=== PATIENT | male | born 1970 | race Caucasian/White ===

== ENCOUNTER 2019-12-18 09:33 | Outpatient (REF) | payer OTHER, SELFPAY | END 2019-12-18 09:34 | disposition home or self-care (01) | LOC: HO.LAB 09:33 | PROVIDERS: Visit Provider Internal Medicine | DX: Z20.828 Contact with and (suspected) exposure to other viral communicable diseases (principal) | CPT/HCPCS: C9803; U0003 ==

== ENCOUNTER 2020-02-21 12:58 | Outpatient (REF) | payer OTHER, SELFPAY | END 2020-02-21 12:59 | disposition home or self-care (01) | LOC: HO.LAB 12:58 | PROVIDERS: Visit Provider Internal Medicine | DX: Z20.822 Contact with and (suspected) exposure to COVID-19 (principal) | CPT/HCPCS: 36415; C9803; U0003 ==

== ENCOUNTER 2020-06-15 13:56 | Emergency (ER) | payer OTHER, SELFPAY ==
[2020-06-15 14:05] VITALS: BP 143/85; PULSE 85; RESP 18; TEMP 37; O2SAT 97; BMI 29.0
--- NOTE | 2020-06-15 15:12 | ED.WOUNDLAC ---
HPI - Wound/Laceration General Chief Complaint: Wound/Laceration Stated Complaint: L HAND LACERATION Time Seen by Provider: 06/15/20 15:03 Source: patient Mode of arrival: ambulatory Limitations: no limitations History of Present Illness HPI narrative: Patient presents to the ED for dorsal aspect of hand laceration. Patient states he had a padded box sewer in his pants and he forgot about it and he put his left hand into his pocket and the padded box sewer cut the dorsal aspect of his hand. States not much bleeding. Patient has complete range of motion of wrist and hand. Related Data Allergies Allergy/AdvReac Type Severity Reaction Status Date / Time No Known Allergies Allergy Unverified 10/31/19 19:29 [No Known Allergies*] Review of Systems Review of Systems: Yes all other systems are reviewed and are negative Constitutional: Constitutional: Reports as per HPI and Reports no additional constitutional complaints Eyes: Eyes: Reports as per HPI and Reports no additional eye complaints ENT: Reports system reviewed and no additional complaints, except as documented and Reports as per HPI Cardiovascular: Cardiovascular: Reports as per HPI and Reports no additional cardiovascular complaints Respiratory: Respiratory: Reports as per HPI and Reports no additional respiratory complaints Gastrointestinal: Gastrointestinal: Reports as per HPI and Reports no additional gastrointestinal complaints Genitourinary: Genitourinary: Reports no additional male genitourinary complaints and Reports as per HPI Musculoskeletal: Musculoskeletal: Reports no additional musculoskeletal complaints and Reports as per HPI Comments: Left hand laceration on dorsal aspect Neurologic: Reports system reviewed and no additional complaints, except as documented and Reports as per HPI Psychiatric: Psychiatric: Reports no additional psychiatric complaints and Reports as per HPI Endocrine: Endocrine: Reports no additional endocrine complaints and Reports as per HPI [facility] Social History Social History Advance Directives: Yes Advance Directives Information Provided: Yes Advance Directives on File: No Physical Exam Vital Signs: Vital Signs: Last Vital Signs Temp 98.6 F 06/15/20 14:05 Pulse 85 06/15/20 14:05 Resp 18 06/15/20 14:05 BP 143/85 H 06/15/20 14:05 Pulse Ox 97 06/15/20 14:05 Body Mass Index 29.0 Const: General: cooperative, healthy appearing, comfortable, no acute distress, well developed, alert and awake Orientation/consciousness: patient oriented x3 HENMT: Head: Yes normal to inspection, Yes No palpable skull fracture present, Yes normocephalic and No atraumatic Eyes: General: appearance normal, both eyes and all related structures Neck: Neck: Yes normal visual inspection, Yes full ROM, Yes no lymphadenopathy, Yes no meningeal signs, Yes trachea midline, Yes supple and No tender Chest: Chest palpation & inspection: normal inspection of the chest and normal palpation of entire chest wall Breast/axilla inspection: normal inspection of the breasts Resp: Effort & Inspection: normal respiratory effort and able to speak in complete sentences Auscultation: clear to auscultation bilaterally Cardio: Jugular venous distension: no JVD Heart sounds: S1 normal heart sound present and S2 normal heart sound present GI: Inspection: Yes normal to inspection and No abdominal wall ecchymosis Palpation (GI): Soft to palpation, not firm, nontender, no guarding and not rigid : General: Yes no CVA tenderness Back/Spine/Pelvis: Back: no CVA tenderness, No CVA tenderness and No back tenderness Skin: General skin exam: no rashes or lesions noted and elasticity normal Neuro: General: patient oriented x3, no meningeal signs and CN's II-XI intact bilaterally Cranial nerves: Yes CN's II-XII intact bilaterally Extrem: Other: Left upper extremity: Laceration on dorsal aspect of hand. Patient has complete range of motion of hand and wrist. Mild bleeding. Negative for any tendon exposure of possibility of tendon injury. Capillary refill is intact. Radial pulse intact. Neuro exam is intact. Vascular exam intact Psych: Appearance: grossly normal, well kempt and not disheveled Course Course Course Narrative: No need for hand x-ray. Very superficial laceration. Will repair laceration. Reevaluation(s) Reevaluation #1: Laceration on dorsal aspect of left hand clean with sterile saline and Betadine. Lidocaine 2% 5 mL was placed into wound for anesthesia. Size 4 nylon sutures were used for repair. Four sutures were placed. Tetanus ordered. Discharge Plan Discharge Clinical Impression: Laceration Patient Disposition: Home, Self-Care Instructions: Laceration (ED) Additional Instructions: Return to the ED immediately for redness, pus discharge, foul odor, redness, inability to move fingers, blue discoloration of fingertips, coolness, warmth, or any other concerning symptoms. Return to ED in 12 days for suture removal. Interventions: ED Discharge Assessment Last Done: 06/15/20 16:17 Discharge Date/Time: 06/15/20 16:18 Print Language: Croatian
[2020-06-15] MEDS: Diphth,Pertus(ACell),Tet Adult 0.5 ML SYRINGE IM (15:34)
[2020-06-15] MEDS: Lidocaine HCl 2 % MPF 5 ML VIAL INFILTRATI (15:35)
== END 2020-06-15 16:18 | disposition home or self-care (01) ==
PROVIDERS: Emergency Provider Emergency Medicine; PCP Internal Medicine
DX: S61.412A Laceration without foreign body of left hand, initial encounter (principal); M79.642 Pain in left hand; W26.0XXA Contact with knife, initial encounter; Y93.9 Activity, unspecified; Y92.9 Unspecified place or not applicable; Y99.9 Unspecified external cause status
CPT/HCPCS: 12001; 90471; 90715; 99283; 99284